=== PATIENT | female | born 1995 | race American Indian/Alaskan Native ===

== ENCOUNTER 2016-08-25 12:58 | Emergency (ER) | payer SELFPAY ==
[2016-08-25 14:31] LABS: Bilirubin,Urine NEG (Negative); Blood,Urine NEG (Negative); Ketones,Urine NEG (Negative); Leukocyte Esterase,Urine NEG (Negative); Mucus,Urine FEW /HPF; Nitrite,Urine NEG (Negative); Protein,Urine <15 mg/dL mg/dL (Negative); Urobilinogen,Urine < 2.0 mg/dL (<2.0); WBC,Urine < 1.0 /HPF (0.0-6.0)
[2016-08-25] MEDS ORDERED: TORADOL IM ONE (18:36)
--- NOTE | 2016-08-25 19:25 | Emergency Department Report ---
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 PT states her job requires a lot of bending and lifting. PT reports R lower back pain since . PT states she has been trying to use natural remedies - peppermint soaks and nae tea. PT states the pain has been radiating up her back and into her R shoulder. PT states the pain is worse when she leans or lays back. PT states when she puts pressure on her back, it hurts when she breaths. PT states she is not SOB. Complaint: LBP Onset/Timin -: Gradual, days(s) Location: back Radiation: other (up back to shoulder ) Severity scale (0 -10): 4 Quality: aching Consistency: constant Improves with: rest Worsens with: other (pressure to back) Associated Symptoms: denies: chest pain, nausea/vomiting, shortness of breath Treatments Prior to Arrival: heat therapy - Related Data Previous Rx's Medication Instructions Recorded Last Taken Type Ibuprofen [Motrin] 600 mg PO Q8H PRN #15 tablet 08/25/16 Unknown Rx methOCARBAMOL [Robaxin TAB] 500 mg PO Q6H PRN #15 tablet 08/25/16 Unknown Rx traMADol [Ultram] 50 mg PO Q6HR PRN #12 tablet 08/25/16 Unknown Rx Allergies Allergy/AdvReac Type Severity Reaction Status Date / Time No Known Allergies Allergy Unverified 08/25/16 13:51 ED Review of Systems ROS: Stated complaint: SEVERE LWR BACK/SHOULDER PAIN/SLIGHT BREATHING PRO Other details as noted in HPI Comment: All other systems reviewed and negative Constitutional: denies: fever Respiratory: other (hurts to breath with pressure is applied to back ). denies : orthopnea Cardiovascular: denies: chest pain Gastrointestinal: denies: abdominal pain Musculoskeletal: back pain ED Past Medical Hx - Past Medical History Previous Medical History?: No - Surgical History Past Surgical History?: No - Social History Smoking Status: Never Smoker Substance Use Type: Alcohol - Medications Home Medications: Home Medications Medication Instructions Recorded Confirmed Last Taken Type Ibuprofen [Motrin] 600 mg PO Q8H PRN #15 tablet 08/25/16 Unknown Rx methOCARBAMOL [Robaxin TAB] 500 mg PO Q6H PRN #15 tablet 08/25/16 Unknown Rx traMADol [Ultram] 50 mg PO Q6HR PRN #12 tablet 08/25/16 Unknown Rx ED Physical Exam - General Limitations: No Limitations General appearance: alert, in no apparent distress - Head Head exam: Present: atraumatic, normocephalic - Eye Eye exam: Present: normal appearance. Absent: conjunctival injection - ENT ENT exam: Present: normal exam, normal orophraynx, mucous membranes moist, normal external ear exam - Neck Neck exam: Present: normal inspection, full ROM. Absent: tenderness - Respiratory Respiratory exam: Present: normal lung sounds bilaterally. Absent: respiratory distress, wheezes, chest wall tenderness, accessory muscle use, decreased breath sounds - Cardiovascular Cardiovascular Exam: Present: regular rate, normal rhythm - GI/Abdominal GI/Abdominal exam: Present: soft. Absent: tenderness - Extremities Exam Extremities exam: Present: normal inspection, full ROM - Back Exam Back exam: Present: normal inspection, tenderness, muscle spasm, paraspinal tenderness (R lumbar paraspinal ). Absent: CVA tenderness (R), CVA tenderness ( L), vertebral tenderness - Neurological Exam Neurological exam: Present: alert, oriented X3, CN II-XII intact, normal gait - Psychiatric Psychiatric exam: Present: normal affect, normal mood - Skin Skin exam: Present: warm, dry, intact ED Course Vital Signs 08/25/16 08/25/16 13:41 19:40 Temperature 98.2 F 98.5 F Pulse Rate 78 76 Respiratory 19 19 Rate Blood Pressure 118/82 Blood Pressure 126/79 [Right] O2 Sat by Pulse 100 98 Oximetry - Reevaluation(s) Reevaluation #1: 08/25/16 19:32 PT remains stable while in Ed. PT states her back pain has decreased. Pt aware no ETOH or Driving after Ultram or Robaxin - Pulse Oximetry Interpretation Digit-Finger Initial Pulse Oximetry Readin Actions Taken: none ED Medical Decision Making - EKG Data -: EKG Interpreted by Me EKG shows normal: sinus rhythm Rate: normal - Radiology Data Radiology results: image reviewed interpreted by me: Chest - Nap - Differential Diagnosis uti, renal colic, back strain Critical care attestation.: If time is entered above; I have spent that time in minutes in the direct care of this critically ill patient, excluding procedure time. ED Disposition Clinical Impression: Acute low back pain Qualifiers: Back pain laterality: right Sciatica presence: without sciatica Qualified Code( s): M54.5 - Low back pain Disposition: DISCHARGED TO HOME OR SELFCARE Is pt being admited?: No Does the pt Need Aspirin: No Condition: Stable Instructions: Low Back Strain (ED), Acute Low Back Pain (ED), Back Pain (ED) Additional Instructions: No driving or Etoh after taking Ultram or Robaxin. Avoid lifting greater than 15 lbs at this time Use proper body mechanics when bending or lifting. Prescriptions: Ibuprofen [Motrin] 600 mg PO Q8H PRN #15 tablet PRN Reason: Pain methOCARBAMOL [Robaxin TAB] 500 mg PO Q6H PRN #15 tablet PRN Reason: Muscle Spasm traMADol [Ultram] 50 mg PO Q6HR PRN #12 tablet PRN Reason: Pain Referrals: PRIMARY CAREMD [Primary Care Provider] - 3-5 Days JEFF LUNA MD [Staff Physician] - 3-5 Days [facility] [Outside] - 3-5 Days Forms: Work/School Release Form(ED) Time of Disposition: 19:36
[2016-08-25 20:10] VITALS: BP 126/79
--- NOTE | 2016-08-26 10:28 | XRay Report ---
CHEST TWO VIEWS: 08/25/16 12:58:00 CLINICAL: Shortness of breath. COMPARISON: None FINDINGS: Normal heart and pulmonary vasculature. The lungs are normally expanded and clear. The bones and soft tissues are normal. IMPRESSION: Normal chest.
== END 2016-08-25 19:43 | disposition home or self-care (01) ==
LOC: ED 12:58
DX: M54.5 Low back pain (principal)
CPT/HCPCS: 71020; 81001; 81025; 93005; 93010; 96372; 99283; J1885

== ENCOUNTER 2019-02-07 23:57 | Emergency (ER) | payer SELFPAY ==
[2019-02-08 00:16] VITALS: BP 152/86
[2019-02-08 01:17] LABS: HCG Qualitative,Urine Negative (Negative)
[2019-02-08] MEDS ORDERED: TYLENOL PO ONE (02:20)
[2019-02-08] MEDS ORDERED: IBUPROFEN PO ONE (02:20)
--- NOTE | 2019-02-08 03:43 | XRay Report ---
CERVICAL SPINE 3 VIEWS 0154 INDICATION: neck pain COMPARISON: None available. FINDINGS: Tip of the odontoid is not well seen on odontoid view. Mild loss of lordosis is noted. No f ractures or subluxations are seen. No soft tissue swelling is noted. Disc spaces are maintained. Signer Name: Lobo Weaver MD Signed: 02/08/2019 3:39 AM Workstation Name: [id number]
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
== END 2019-02-08 04:30 | disposition home or self-care (01) ==
LOC: EDBD → ED 23:57
DX: S16.1XXA Strain of muscle, fascia and tendon at neck level, initial encounter (principal); S46.912A Strain of unspecified muscle, fascia and tendon at shoulder and upper arm level, left arm, initial encounter; S46.911A Strain of unspecified muscle, fascia and tendon at shoulder and upper arm level, right arm, initial encounter; Z79.899 Other long term (current) drug therapy; Z79.1 Long term (current) use of non-steroidal anti-inflammatories (NSAID); V89.2XXA Person injured in unspecified motor-vehicle accident, traffic, initial encounter; Y93.89 Activity, other specified; Y92.488 Other paved roadways as the place of occurrence of the external cause; Y99.8 Other external cause status
CPT/HCPCS: 72040; 81025; 99284